=== PATIENT | female | born 1955 | race Native Hawaiian/Other Pacific Islander ===

== ENCOUNTER 2018-08-10 20:38 | Emergency (ER) | payer OTHER ==
[~2018-08-10] VITALS: Ht 167.6 cm; Wt 53.1 kg
[2018-08-10 20:38] VITALS: TEMP 98.4
[2018-08-10 21:08] LABS: PLATELET COUNT 212 K/uL (152-353)
[2018-08-10 21:21] LABS: POTASSIUM 3.7 mmol/L (3.6-5.2)
[2018-08-10 23:04] VITALS: BP 113/78
[2018-08-11] MEDS ORDERED: ABILIFY MYCITE5 MG PO (02:09)
[2018-08-11] MEDS ORDERED: B121000 MCG PO (02:10)
[2018-08-11] MEDS ORDERED: B12-ACTIVE1 MG PO (02:11)
[2018-08-11] MEDS ORDERED: DICYCLOMINE HYD10 MG PO (02:13)
[2018-08-11] MEDS ORDERED: BUSPIRONE10 MG PO (02:14)
[2018-08-11] MEDS ORDERED: CYCL10TA35 PO (02:16)
[2018-08-11] MEDS ORDERED: AMIT25TA22 PO (02:17)
[2018-08-11] MEDS ORDERED: ELIQUIS5 MG PO (02:21)
[2018-08-11] MEDS ORDERED: ROWEEPRA500 MG PO (02:23)
[2018-08-11] MEDS ORDERED: LEXAPRO10 MG PO (02:24)
[2018-08-11] MEDS ORDERED: MEGESTROL AC40 MG/ML PO (02:26)
[2018-08-11] MEDS ORDERED: GABA400C2 PO (02:28)
[2018-08-11] MEDS ORDERED: HYDR5TAB9 PO (02:35)
[2018-08-11] MEDS ORDERED: POTASSIUM CHLORIDE PO (02:39)
[2018-08-11] MEDS ORDERED: MYSOLINE250 MG PO (02:41)
[2018-08-11] MEDS ORDERED: PROPRANOLOL10 MG PO (02:42)
[2018-08-11] MEDS ORDERED: PYRI60TA2 PO (02:46)
[2018-08-11] MEDS ORDERED: REQUIP1 MG PO (02:47)
[2018-08-11] MEDS ORDERED: LEVO0.0723 PO (02:48)
[2018-08-11] MEDS ORDERED: TOPAMAX50 MG PO (02:50)
[2018-08-11] MEDS ORDERED: PROVENTIL108 MCG/AC INH (02:57)
[2018-08-11] MEDS ORDERED: VITAMIN D32000 UNI1 PO (02:58)
[2018-08-11] MEDS ORDERED: DICL1GEL2 TOP (03:02)
== END 2018-08-10 23:28 | disposition other institution (70) ==
LOC: ED 20:38
PROVIDERS: Emergency Medicine
DX: R45.851 Suicidal ideations (principal); N39.0 Urinary tract infection, site not specified; Z04.6 Encounter for general psychiatric examination, requested by authority
CPT/HCPCS: 36415; 80053; 81000; 85027; 87086; 87088; 93005; 99285